=== PATIENT | female | born 2000 | race African-American/Black ===

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

== ENCOUNTER 2022-12-14 08:29 | Inpatient (IN) | payer MEDICAID ==
[~2022-12-14] VITALS: Ht 160 cm; Wt 51.3 kg
[2022-12-14 09:16] LABS: Basophils # (auto) 0.1 10 ^3/uL (0-0.2); Basophils % (auto) 1.2 % (0.0-2.0); Eosinophils # (auto) 0.1 10 ^3/uL (0-0.8); Eosinophils % (auto) 2.7 % (0.0-7.0); Hematocrit 40.7 % (36.0-46.0); Hemoglobin 13.7 g/dL (12.2-16.2); Lymphocytes # (auto) 1.1 10 ^3/uL (0.4-5.4); Lymphocytes % (auto) 25.1 % (10.0-50.0); Mean Corpuscular Hemoglobin 29.1 pg (28.0-32.0); Mean Corpuscular Hgb Conc. 33.6 g/dL (32.0-36.0); Mean Corpuscular Volume 86.4 fL (80.0-100.0); Monocytes # (auto) 0.4 10 ^3/uL (0-1.3); Monocytes % (auto) 9.1 % (0.0-12.0); Neutrophils # (auto) 2.7 10 ^3/uL (1.6-8.6); Neutrophils % (auto) 61.9 % (37.0-80.0); Red Blood Cells 4.72 10^6/uL (4.0-5.20); Red Cell Distribution Width 16.2 % (11.8-14.3); White Blood Cell 4.3 10^3/uL (4.4-10.8)
[2022-12-14 09:33] LABS: Urine Bacteria NONE SEEN /hpf (None Seen); Urine Blood Negative /uL (Negative); Urine Clarity Clear (Clear); Urine Protein, UAD Negative (Negative); Urine Specific Gravity 1.003 (1.001-1.035); Urine Urobilinogen Normal (Negative); Urine WBC <1 /hpf (0 - 5); Urine pH 6.5 (5.0-8.0)
[2022-12-14 09:34] LABS: Alanine Aminotransferase 25 U/L (7-40); Albumin 4.8 g/dL (3.2-4.8); Alkaline Phosphatase 37 U/L (46-116); Anion Gap 5 (5-15); Aspartate Aminotransferase 13 U/L (13-40); Bilirubin, Total 0.4 mg/dL (0.2-1.0); Blood Urea Nitrogen 6 mg/dL (9-23); Carbon Dioxide 26 mmol/L (20-30); Chloride 103 mmol/L (98-107); Glucose 89 mg/dL (74-106); Potassium 3.6 mmol/L (3.5-5.1); Sodium 134 mmol/L (136-145); Total Protein 7.3 g/dL (5.7-8.2)
[2022-12-14 09:37] LABS: Urine Color STRAW (Yellow)
[2022-12-14] MEDS ORDERED: SODIUM CHLORIDE 0.9% 2,000 ML IV ONE (12:30)
[2022-12-14] MEDS ORDERED: ONDANSETRON HCL 4 MG/2 ML VIAL ONE (13:12)
[2022-12-14] MEDS ORDERED: ONDANSETRON HCL 4 MG/2 ML VIAL IV ONE (14:00)
[2022-12-14] MEDS ORDERED: ONDANSETRON HCL 4 MG/2 ML VIAL IV PRN (14:15)
[2022-12-14] MEDS ORDERED: NITROGLYCERIN 0.4 MG SL TAB SL PRN (14:15)
[2022-12-14] MEDS ORDERED: MORPHINE SULFATE INJ 2 MG/ml SYRG IV PRN (14:15)
[2022-12-14] MEDS: SODIUM CHLORIDE 0.9% 1,000 ML IV SCH (14:49)
[2022-12-14 18:04] VITALS: PULSE 76; RESP 16; O2SAT 100
[2022-12-14 22:41] VITALS: BP_SYST 130; BP_SYST 136; BP_DIAS 77; PULSE 78; RESP 18; TEMP 98.4; O2SAT 100
[2022-12-14 23:31] VITALS: BP 130/77; PULSE 78; RESP 18; TEMP 98.4; O2SAT 100
[2022-12-15] MEDS: SODIUM CHLORIDE 0.9% 1,000 ML IV SCH ×3 (01:44→14:15)
[2022-12-15 05:00] VITALS: BP_SYST 104; BP_SYST 110; BP_SYST 111; BP_DIAS 62; BP_DIAS 75; PULSE 64; PULSE 69; PULSE 71; RESP 16; TEMP 98; O2SAT 98
[2022-12-15] MEDS ORDERED: FLUO10TA18 PO (05:22)
[2022-12-15 06:25] LABS: Basophils # (auto) 0 10 ^3/uL (0-0.2); Basophils % (auto) 1.1 % (0.0-2.0); Eosinophils # (auto) 0.2 10 ^3/uL (0-0.8); Eosinophils % (auto) 3.9 % (0.0-7.0); Hematocrit 35.4 % (36.0-46.0); Hemoglobin 12.3 g/dL (12.2-16.2); Lymphocytes # (auto) 1.2 10 ^3/uL (0.4-5.4); Lymphocytes % (auto) 26.7 % (10.0-50.0); Mean Corpuscular Hemoglobin 29.6 pg (28.0-32.0); Mean Corpuscular Hgb Conc. 34.8 g/dL (32.0-36.0); Mean Corpuscular Volume 85.1 fL (80.0-100.0); Monocytes # (auto) 0.5 10 ^3/uL (0-1.3); Monocytes % (auto) 10.8 % (0.0-12.0); Neutrophils # (auto) 2.7 10 ^3/uL (1.6-8.6); Neutrophils % (auto) 57.5 % (37.0-80.0); Nucleated Red Blood Cells % 0.1 %; Red Blood Cells 4.16 10^6/uL (4.0-5.20); Red Cell Distribution Width 15.8 % (11.8-14.3); White Blood Cell 4.6 10^3/uL (4.4-10.8)
[2022-12-15 06:39] LABS: Alanine Aminotransferase 35 U/L (7-40); Albumin 4.1 g/dL (3.2-4.8); Alkaline Phosphatase 33 U/L (46-116); Anion Gap 5 (5-15); Aspartate Aminotransferase 20 U/L (13-40); Bilirubin, Total 0.4 mg/dL (0.2-1.0); Calcium 8.5 mg/dL (8.7-10.4); Carbon Dioxide 24 mmol/L (20-30); Chloride 108 mmol/L (98-107); Glucose 87 mg/dL (74-106); Potassium 3.7 mmol/L (3.5-5.1); Sodium 137 mmol/L (136-145); Total Protein 6.2 g/dL (5.7-8.2)
[2022-12-15 06:55] LABS: BUN/Creatinine Ratio 8.1 (10.0-20.0); Blood Urea Nitrogen < 5 mg/dL (9-23)
[2022-12-15 08:00] VITALS: PULSE 71; PULSE 85; RESP 16; O2SAT 98
[2022-12-15 09:00] VITALS: BP_SYST 108; BP_SYST 109; BP_SYST 129; BP_DIAS 63; BP_DIAS 68; BP_DIAS 71; PULSE 71; RESP 16; TEMP 97.8; O2SAT 98
[2022-12-15 13:00] VITALS: BP 94/57; PULSE 78; RESP 18; TEMP 98.1; O2SAT 100
== END 2022-12-15 15:22 | disposition left against medical advice (07) | DRG 566 ==
LOC: ER 08:29 → TELE 14:09 → TELE-WESTW 22:20
PROVIDERS: ADMIT Nurse Practitioner Family; ATTEND Internal Medicine
DX: O20.8 Other hemorrhage in early pregnancy (principal); O21.0 Mild hyperemesis gravidarum; R55 Syncope and collapse; Z53.29 Procedure and treatment not carried out because of patient's decision for other reasons; Z88.8 Allergy status to other drugs, medicaments and biological substances; Z3A.11 11 weeks gestation of pregnancy; Z88.0 Allergy status to penicillin
CPT/HCPCS: 36415; 76801; 80053; 81001; 82962; 84443; 84484; 84702; 85025; 86901; 93005; 96374; G0378; J2405

== ENCOUNTER 2023-02-19 11:33 | Emergency (ER) | payer MEDICAID ==
[~2023-02-19] VITALS: Ht 167.6 cm; Wt 55.0 kg
[~2023-02-19 11:33] MED LIST: FLUO10TA18 PO
[2023-02-19 12:00] VITALS: RESP 16; O2SAT 100
[2023-02-19] MEDS ORDERED: METO-281 PO (12:31)
[2023-02-19] MEDS ORDERED: PREN-96 PO (12:31)
[2023-02-19 13:06] LABS: Basophils # (auto) 0 10 ^3/uL (0-0.2); Basophils % (auto) 0.7 % (0.0-2.0); Eosinophils # (auto) 0.2 10 ^3/uL (0-0.8); Eosinophils % (auto) 2.8 % (0.0-7.0); Hematocrit 41.3 % (36.0-46.0); Hemoglobin 13.7 g/dL (12.2-16.2); Lymphocytes # (auto) 1.4 10 ^3/uL (0.4-5.4); Lymphocytes % (auto) 20.4 % (10.0-50.0); Mean Corpuscular Hemoglobin 30.1 pg (28.0-32.0); Mean Corpuscular Hgb Conc. 33.2 g/dL (32.0-36.0); Mean Corpuscular Volume 90.7 fL (80.0-100.0); Monocytes # (auto) 0.5 10 ^3/uL (0-1.3); Monocytes % (auto) 7.9 % (0.0-12.0); Neutrophils # (auto) 4.6 10 ^3/uL (1.6-8.6); Neutrophils % (auto) 68.2 % (37.0-80.0); Red Blood Cells 4.55 10^6/uL (4.0-5.20); White Blood Cell 6.8 10^3/uL (4.4-10.8)
[2023-02-19 13:18] LABS: Alanine Aminotransferase 16 U/L (7-40); Albumin 4.2 g/dL (3.2-4.8); Alkaline Phosphatase 40 U/L (46-116); Anion Gap 9 (5-15); Aspartate Aminotransferase 17 U/L (13-40); BUN/Creatinine Ratio 11.7 (10.0-20.0); Bilirubin, Total 0.3 mg/dL (0.2-1.0); Blood Urea Nitrogen 7 mg/dL (9-23); Calcium 9.2 mg/dL (8.5-10.1); Carbon Dioxide 23 mmol/L (20-30); Chloride 106 mmol/L (98-107); Glucose 72 mg/dL (74-106); Potassium 3.3 mmol/L (3.5-5.1); Sodium 138 mmol/L (136-145)
[2023-02-19 14:52] VITALS: BP 105/65; PULSE 78; RESP 16; TEMP 98.1; O2SAT 98
[2023-02-19 14:52] LABS: Urine Bacteria FEW /hpf (None Seen); Urine Blood Negative /uL (Negative); Urine Clarity Clear (Clear); Urine Color Colorless (Yellow); Urine Protein, UAD Negative (Negative); Urine Urobilinogen Normal (Negative); Urine WBC 1 /hpf (0 - 5); Urine pH 7.5 (5.0-8.0)
== END 2023-02-19 14:59 | disposition home or self-care (01) ==
LOC: EDBD 11:33 → ER 11:33
DX: O99.352 Diseases of the nervous system complicating pregnancy, second trimester (principal); R10.2 Pelvic and perineal pain; G40.909 Epilepsy, unspecified, not intractable, without status epilepticus; Z88.1 Allergy status to other antibiotic agents; Z79.899 Other long term (current) drug therapy; Z3A.20 20 weeks gestation of pregnancy
CPT/HCPCS: 36415; 76815; 80053; 81001; 84702; 85025

== ENCOUNTER 2023-04-12 12:42 | Emergency (ER) | payer MEDICAID ==
[~2023-04-12] VITALS: Ht 152.4 cm; Wt 59.0 kg
[~2023-04-12 12:42] MED LIST changes: +METO-281 PO; +PREN-96 PO
[2023-04-12 12:45] VITALS: BP 108/60; PULSE 71; RESP 18; O2SAT 99
== END 2023-04-12 14:55 | disposition left against medical advice (07) ==
LOC: ER 12:42
DX: R56.9 Unspecified convulsions (principal); Z53.21 Procedure and treatment not carried out due to patient leaving prior to being seen by health care provider

== ENCOUNTER 2023-04-20 09:58 | Observation (INO) | payer MEDICAID | END 2023-04-20 11:14 | disposition home or self-care (01) | LOC: UNDOADMOB 09:58 → LDRP 09:58 → UNDODISOB 11:14 | PROVIDERS: ADMIT Obstetrics & Gynecology; ATTEND Obstetrics & Gynecology | DX: O99.353 Diseases of the nervous system complicating pregnancy, third trimester (principal); G40.909 Epilepsy, unspecified, not intractable, without status epilepticus; Z3A.29 29 weeks gestation of pregnancy | CPT/HCPCS: 59025; 81002; 94760; G0378 ==

== ENCOUNTER 2023-04-27 08:48 | Observation (INO) | payer MEDICAID | END 2023-04-27 10:40 | disposition home or self-care (01) | LOC: LDRP 08:48 → UNDODISOB 09:48 | PROVIDERS: ADMIT Obstetrics & Gynecology; ATTEND Obstetrics & Gynecology | DX: O99.353 Diseases of the nervous system complicating pregnancy, third trimester (principal); O26.893 Other specified pregnancy related conditions, third trimester; G40.909 Epilepsy, unspecified, not intractable, without status epilepticus; R51.9 Headache, unspecified; Z88.1 Allergy status to other antibiotic agents; Z3A.30 30 weeks gestation of pregnancy | CPT/HCPCS: 59025; 76818; 81002; 94760; G0378 ==

== ENCOUNTER 2023-04-28 07:47 | Observation (INO) | payer MEDICAID | END 2023-04-28 09:23 | disposition home or self-care (01) | LOC: LDRP 07:47 → UNDOADMOB 07:47 → LDRP 07:52 → UNDODISOB 09:23 | PROVIDERS: ADMIT Obstetrics & Gynecology; ATTEND Obstetrics & Gynecology | DX: O99.353 Diseases of the nervous system complicating pregnancy, third trimester (principal); O26.893 Other specified pregnancy related conditions, third trimester; G40.901 Epilepsy, unspecified, not intractable, with status epilepticus; R51.9 Headache, unspecified; Z88.0 Allergy status to penicillin; Z3A.30 30 weeks gestation of pregnancy | CPT/HCPCS: 59025; 76818; 81002; G0378 ==

== ENCOUNTER 2023-05-03 08:00 | Observation (INO) | payer MEDICAID ==
[2023-05-03] MEDS ORDERED: LEVE100012 PO (09:27)
== END 2023-05-03 10:47 | disposition home or self-care (01) ==
LOC: LDRP 08:00 → UNDOADMOB 08:00 → LDRP 08:09
PROVIDERS: ADMIT Obstetrics & Gynecology; ATTEND Obstetrics & Gynecology
DX: O99.353 Diseases of the nervous system complicating pregnancy, third trimester (principal); R56.9 Unspecified convulsions; Z3A.31 31 weeks gestation of pregnancy
CPT/HCPCS: 59025; 81002; 94760; G0378

== ENCOUNTER 2023-05-10 11:00 | Observation (INO) | payer MEDICAID ==
[~2023-05-10 11:00] MED LIST changes: +LEVE100012 PO
== END 2023-05-10 13:06 | disposition home or self-care (01) ==
LOC: LDRP 11:00 → UNDOADMOB 11:00 → LDRP 11:27
PROVIDERS: ADMIT Obstetrics & Gynecology; ATTEND Obstetrics & Gynecology
DX: O99.353 Diseases of the nervous system complicating pregnancy, third trimester (principal); G43.909 Migraine, unspecified, not intractable, without status migrainosus; Z3A.32 32 weeks gestation of pregnancy; Z91.018 Allergy to other foods; Z88.1 Allergy status to other antibiotic agents
CPT/HCPCS: 59025; 76818; 81002; G0378

== ENCOUNTER 2023-05-19 05:56 | Emergency (ER) | payer MEDICAID ==
[~2023-05-19] VITALS: Ht 157.5 cm; Wt 56.0 kg
[2023-05-19 05:56] VITALS: O2SAT 100
[2023-05-19] MEDS ORDERED: CLIN300C70 PO (06:47)
[2023-05-19] MEDS: MORPHINE SULFATE INJ 2 MG/ml SYRG IM ONE (06:47)
[2023-05-19] MEDS: cefTRIAXone SOD 1,000 MG VL IM ONE (06:52)
[2023-05-19 07:21] VITALS: BP 117/80; PULSE 80; RESP 16
== END 2023-05-19 07:25 | disposition home or self-care (01) ==
LOC: ER 05:56
DX: O99.613 Diseases of the digestive system complicating pregnancy, third trimester (principal); K04.7 Periapical abscess without sinus; Z3A.33 33 weeks gestation of pregnancy; Z79.899 Other long term (current) drug therapy; Z88.8 Allergy status to other drugs, medicaments and biological substances
CPT/HCPCS: 96372; 99284; J0696; J2270

== ENCOUNTER 2023-06-22 10:08 | Observation (INO) | payer MEDICAID ==
[~2023-06-22 10:08] MED LIST changes: +CLIN1CAP70 PO
== END 2023-06-22 12:35 | disposition home or self-care (01) ==
LOC: LDRP 10:08 → UNDOADMOB 10:08 → LDRP 10:11
PROVIDERS: ADMIT Obstetrics & Gynecology; ATTEND Obstetrics & Gynecology
DX: O99.353 Diseases of the nervous system complicating pregnancy, third trimester (principal); G40.909 Epilepsy, unspecified, not intractable, without status epilepticus; F41.9 Anxiety disorder, unspecified; Z3A.38 38 weeks gestation of pregnancy; Z88.0 Allergy status to penicillin
CPT/HCPCS: 59025; 76818; 81002; G0378

== ENCOUNTER 2023-06-23 10:34 | Inpatient (IN) | payer MEDICAID ==
[~2023-06-23] VITALS: Ht 157.5 cm; Wt 59.0 kg
[2023-06-23] MEDS ORDERED: LIDOCAINE 2%HCL (LOCAL ANESTH.) INJ 20ML MDV IJ PRN (11:45)
[2023-06-23] MEDS ORDERED: BUTORPHANOL TARTRATE 2 MG/1 ML VIAL IV PRN ×2 (11:45)
[2023-06-23] MEDS: NALOXONE HCL 0.4 MG/ML VIAL IV ONE (12:00)
[2023-06-23] MEDS: ePHEDrine SULFATE 50 MG/ML AMP IV ONE (12:00)
[2023-06-23] MEDS ORDERED: TERBUTALINE SULFATE 1 MG/ML 1ML VIAL SC PRN (12:00)
[2023-06-23] MEDS: LACTATED RINGER'S 1,000 ML IV SCH (12:13)
[2023-06-23] MEDS: CLINDAMYCIN 900MG IV 50 ML IV SCH (12:13)
[2023-06-23] MEDS: DERMOPLAST 60ML BOTTLE TOP PRN (12:14)
[2023-06-23] MEDS: PHISODERM TOP SOLN 240ML BTL TOP PRN (12:14)
[2023-06-23] MEDS: WITCH HAZEL-GLYCERIN PAD TOP PRN (12:14)
[2023-06-23 13:00] VITALS: RESP 18; O2SAT 100
[2023-06-23] MEDS ORDERED: LORazepam 2MG/ML-1ML VIAL IV ONE (13:00)
[2023-06-23] MEDS ORDERED: MAGNESIUM SULFATE 40MG/ML 1,000 ML IV SCH (13:00)
[2023-06-23 13:04] LABS: Basophils # (auto) 0 10 ^3/uL (0-0.2); Basophils % (auto) 0.5 % (0.0-2.0); Eosinophils # (auto) 0.2 10 ^3/uL (0-0.8); Eosinophils % (auto) 2.7 % (0.0-7.0); Hemoglobin 14.4 g/dL (12.2-16.2); Lymphocytes # (auto) 1.4 10 ^3/uL (0.4-5.4); Lymphocytes % (auto) 19.2 % (10.0-50.0); Mean Corpuscular Hemoglobin 31.1 pg (28.0-32.0); Mean Corpuscular Hgb Conc. 34.3 g/dL (32.0-36.0); Mean Corpuscular Volume 90.8 fL (80.0-100.0); Monocytes # (auto) 0.7 10 ^3/uL (0-1.3); Monocytes % (auto) 8.7 % (0.0-12.0); Neutrophils # (auto) 5.1 10 ^3/uL (1.6-8.6); Neutrophils % (auto) 68.9 % (37.0-80.0); Nucleated Red Blood Cells % 0.2 %; Red Blood Cells 4.62 10^6/uL (4.0-5.20); White Blood Cell 7.5 10^3/uL (4.4-10.8)
[2023-06-23 13:07] LABS: Urine Bacteria FEW /hpf (None Seen); Urine Blood 1+ /uL (Negative); Urine Clarity Clear (Clear); Urine Color Colorless (Yellow); Urine Protein, UAD Negative (Negative); Urine Specific Gravity 1.007 (1.001-1.035); Urine Urobilinogen Normal (Negative); Urine WBC 1 /hpf (0 - 5); Urine pH 6.5 (5.0-8.0)
[2023-06-23 13:18] LABS: Amphetamine Screen, Urine Neg (NEGATIVE); Barbiturate Scree,Urine Neg (NEGATIVE); Benzodiazephine Screen, Urine Neg (NEGATIVE); Cocaine Screen, Urine Neg (NEGATIVE); Opiate Scree,Urine Neg (NEGATIVE)
[2023-06-23 13:19] LABS: Cannabinoid Screen, Urine Pos (NEGATIVE); Phencyclidine Screen, Urine Neg (NEGATIVE)
[2023-06-23 13:20] LABS: Alanine Aminotransferase 18 U/L (7-40); Albumin 4.1 g/dL (3.2-4.8); Alkaline Phosphatase 281 U/L (46-116); Anion Gap 10 (5-15); Aspartate Aminotransferase 23 U/L (13-40); Bilirubin, Total 0.4 mg/dL (0.2-1.0); Blood Urea Nitrogen 6 mg/dL (9-23); Calcium 9.6 mg/dL (8.5-10.1); Carbon Dioxide 21 mmol/L (20-30); Chloride 109 mmol/L (98-107); Glucose 69 mg/dL (74-106); INR 0.93 (0.9-1.15); Partial Thromboplastin Time 26.2 SEC (24.5-34.5); Potassium 3.1 mmol/L (3.5-5.1); Prothrombin Time 9.8 sec (9.3-11.8); Sodium 140 mmol/L (136-145); Total Protein 6.8 g/dL (5.7-8.2)
[2023-06-23] MEDS: MAGNESIUM SULFATE 100 ML IV ONE (13:38)
[2023-06-23] MEDS ORDERED: CLINDAMYCIN 900MG IV 50 ML IV SCH (14:00)
[2023-06-23] MEDS: ROPIVACAINE HCL 200 ML ONE (14:14)
[2023-06-23] MEDS: LACT. RINGERS/OXYTOCIN 20UNITS 1,000 ML IV SCH (14:23)
[2023-06-23] MEDS: levETIRAcetam 500 MG TAB PO SCH (14:42)
[2023-06-23 15:02] VITALS: RESP 16; O2SAT 99
[2023-06-23] MEDS: LACT. RINGERS/OXYTOCIN 20UNITS 500 ML IV ONE ×2 (15:31→16:48)
[2023-06-23] MEDS: METHYLERGONOVINE MALEATE 0.2 MG/ML AMP IM ONE ×2 (15:37→18:11)
[2023-06-23 18:55] VITALS: BP 117/69; PULSE 74; RESP 16; TEMP 98; O2SAT 96
[2023-06-23] MEDS ORDERED: ONDANSETRON ODT 4 MG TAB PO PRN (19:30)
[2023-06-23] MEDS: ACETAMINOPHEN 325 MG TAB PO PRN (20:01)
[2023-06-23] MEDS: DOCUSATE SOD 100 MG CAP PO SCH (22:49)
[2023-06-23] MEDS: IBUPROFEN 800 MG TAB PO SCH (22:50)
[2023-06-23 23:00] VITALS: BP 120/66; PULSE 77; RESP 16; TEMP 97.8; O2SAT 97
[2023-06-24] MEDS: levETIRAcetam 500 MG TAB PO SCH (01:57)
[2023-06-24 02:48] VITALS: BP 116/60; PULSE 69; RESP 17; TEMP 97.9; O2SAT 96
[2023-06-24 07:00] VITALS: BP 113/65; PULSE 60; RESP 16; TEMP 98.1; O2SAT 99
[2023-06-24 10:07] LABS: RPR Non Reactive (Non Reactive)
[2023-06-24 11:00] VITALS: BP 118/82; PULSE 76; RESP 16; TEMP 97.9; O2SAT 96
[2023-06-24 15:00] VITALS: BP 120/73; PULSE 72; RESP 16; TEMP 98.2; O2SAT 97
[2023-06-24 16:45] VITALS: BP 120/72; PULSE 72; RESP 16; TEMP 98.2; O2SAT 97
[2023-06-27 19:06] LABS: Treponema pallidum Ab (FTA-Ab) Non Reactive (Non Reactive)
== END 2023-06-24 16:48 | disposition home or self-care (01) | DRG 560 ==
LOC: LDRP 10:34 → OBSVTOIN 11:30 → LDRP 11:31
PROVIDERS: ADMIT Obstetrics & Gynecology; ATTEND Obstetrics & Gynecology
PROC: 0W8NXZZ Division of Female Perineum, External Approach (ICD-10-PCS; principal; 2023-06-23)
PROC: 10E0XZZ Delivery of Products of Conception, External Approach (ICD-10-PCS; 2023-06-23)
PROC: 0KQM0ZZ Repair Perineum Muscle, Open Approach (ICD-10-PCS; 2023-06-23)
PROC: 3E0S3BZ Introduction of Anesthetic Agent into Epidural Space, Percutaneous Approach (ICD-10-PCS; 2023-06-23)
PROC: 00HU33Z Insertion of Infusion Device into Spinal Canal, Percutaneous Approach (ICD-10-PCS; 2023-06-23)
DX: O69.81X0 Labor and delivery complicated by cord around neck, without compression, not applicable or unspecified (principal); Z37.0 Single live birth; O99.324 Drug use complicating childbirth; O99.354 Diseases of the nervous system complicating childbirth; G40.909 Epilepsy, unspecified, not intractable, without status epilepticus; F12.90 Cannabis use, unspecified, uncomplicated; O70.1 Second degree perineal laceration during delivery; Z3A.38 38 weeks gestation of pregnancy
CPT/HCPCS: 36415; 59025; 59409; 62282; 80053; 80307; 81001; 81002; 85025; 85610; 85730; 86592; 86803; 86850; 86900; 86901; 94760; 96360; 96361; 96365; 96366; G0378; J2590; J3490